=== PATIENT | female | born 2000 | race Hispanic/Latino ===

== ENCOUNTER → 2025-04-02 12:48 | Outpatient (CLI) | payer OTHER, SELFPAY ==
--- NOTE | 2025-04-02 12:50 | DI.MRI.S_ITS ---
PROCEDURE: MR WRIST RT WO CON INDICATIONS: WRIST PAIN - right TECHNIQUE: Noncontrast coronal proton density fast spin echo and T2 fast spin echo with fat saturation; coronal 3-D gradient echo, axial T1 spin echo and T2 fast spin echo with fat saturation, sagittal T1 spin echo through the wrist. COMPARISON: None. FINDINGS: Image quality: Excellent. Bones and cartilage: Mild ulnar negative variance. Normal marrow signal. No significant changes. Carpal ligaments: The scapholunate and lunotriquetral ligaments appear intact. In the absence of intra-articular contrast, the extrinsic carpal ligaments are not well identified. On sagittal images, the pisohamate ligament appears intact. Triangular fibrocartilage complex: The triangular fibrocartilage appears intact. The adjacent meniscal homolog appears normal in the absence of intra-articular contrast. The extensor carpi ulnaris tendon is normal in location and morphology. Tendons and soft tissues: The carpal tunnel structures appear normal, including the median nerve. The ulnar nerve appears normal within Guyon's canal. Trace tenosynovitis of the extensor carpi ulnaris, above the ulnar groove. Mild tendinosis of the extensor carpi ulnaris, at the level of the carpal bones. The 3 mm ganglion cyst immediately volar to the distal radius (3:9). IMPRESSION: 1. Mild ulnar negative variance. 2. Trace tenosynovitis and mild tendinosis of the extensor carpi ulnaris. 3. 3 mm ganglion cyst volar to the distal radius. Dictated by: Wendy Martinez M.D. on 04/03/2025 at 13:44 Approved by: Wendy Martinez M.D. on 04/03/2025 at 13:52
== END ==
PROVIDERS: PCP Student in an Organized Health Care Education/Training Program; Referring Provider Student in an Organized Health Care Education/Training Program; Visit Provider Student in an Organized Health Care Education/Training Program
DX: M67.431 Ganglion, right wrist (principal); M25.531 Pain in right wrist
CPT/HCPCS: 73221